=== PATIENT | male | born 1980 | race Caucasian/White ===

== ENCOUNTER → 2023-03-22 | Outpatient (REF) ==
[2023-03-24 08:10] LABS: HERPES ZOSTER, VARICELLA IgG <135 index (Immune >165); RUBEOLA IgG ANTIBODY 19.3 AU/mL (Immune >16.4)
== END ==
LOC: M LAB 14:17
PROVIDERS: ATTEND Nurse Practitioner Adult Health
DX: Z02.89 Encounter for other administrative examinations (principal)